=== PATIENT | female | born 1975 | race Caucasian/White ===

== ENCOUNTER 2018-04-10 13:08 | Emergency (ER) | payer OTHER ==
[2018-04-10 13:25] VITALS: BP 119/73
[2018-04-10] MEDS ORDERED: KETOROLAC TROMETHAMINE 60 MG/2 ML SDV IM ONE (14:08)
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
--- NOTE | 2018-04-10 14:58 | RADIOLOGY REPORT (SQ) ---
EXAM DESCRIPTION: T SPINE AP/LAT COMPLETED DATE/TIME: 04/10/2018 2:36 pm REASON FOR STUDY: pain COMPARISON: Concurrent cervical spine radiographs NUMBER OF VIEWS: Two views. TECHNIQUE: AP and lateral radiographic images acquired of the thoracic spine. LIMITATIONS: None. FINDINGS: MINERALIZATION: Normal. ALIGNMENT: Normal. No scoliosis. VERTEBRAE: No fracture or bone lesion. Maintained height, normal segmentation. DISCS: No significant loss of height or significant narrowing. No large osteophytes. HARDWARE: None in the spine. MEDIASTINUM AND SOFT TISSUES: Normal heart size and aortic contour. No soft tissue abnormality. VISUALIZED LUNG BRONSON: Clear. OTHER: No other significant finding. IMPRESSION: NO SIGNIFICANT RADIOGRAPHIC FINDING IN THE THORACIC SPINE. TECHNICAL DOCUMENTATION: JOB ID: [id number] [employer]- All Rights Reserved Reading location - IP/workstation name: [email or web address]
== END 2018-04-10 15:19 | disposition home or self-care (01) ==
LOC: ER 13:08
DX: M54.2 Cervicalgia (principal); V43.52XA Car driver injured in collision with other type car in traffic accident, initial encounter; R51 Headache; R20.0 Anesthesia of skin; R20.2 Paresthesia of skin; F17.210 Nicotine dependence, cigarettes, uncomplicated; Z87.39 Personal history of other diseases of the musculoskeletal system and connective tissue; Z88.2 Allergy status to sulfonamides
CPT/HCPCS: 99284; 96372; 72050; 72070; L0120; J1885

== ENCOUNTER 2018-05-03 08:54 | Emergency (ER) | payer OTHER ==
[2018-05-03] MEDS ORDERED: ACETAMINOPHEN 325 MG TABLET ONE (08:59)
[2018-05-03] MEDS ORDERED: FENTANYL CITRATE INJ/PF 100 MCG/2 ML AMPUL IV ONE ×2 (09:50→10:08)
--- NOTE | 2018-05-03 09:58 | RADIOLOGY REPORT (SQ) ---
EXAM DESCRIPTION: ANKLE RIGHT AP/LATERAL COMPLETED DATE/TIME: 05/03/2018 9:31 am REASON FOR STUDY: ankle deformity COMPARISON: None. NUMBER OF VIEWS: Two views. TECHNIQUE: AP and lateral radiographic images acquired of the right ankle. LIMITATIONS: None. FINDINGS: Normal bone density. Acute right ankle fracture dislocation with medial and lateral malleolar fractures, lateral dislocati on of the talus with respect to the tibia. IMPRESSION: Acute right ankle fracture dislocation with mediolateral malleolar fractures and lateral dislocation of the talus with respect to the tibia. TECHNICAL DOCUMENTATION: JOB ID: [id number] [employer]- All Rights Reserved Reading location - IP/workstation name: [email or web address]
[2018-05-03] MEDS ORDERED: KETAMINE HCL INJ 500 MG/10 ML VIAL IV ONE (10:07)
[2018-05-03] MEDS ORDERED: ONDANSETRON HCL INJ/PF 4 MG/2 ML SDV IV ONE ×2 (10:08→12:22)
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
[2018-05-03 11:13] LABS: ABSOLUTE EOSINOPHILS # (AUTO) 0.4 10^3/uL (0.0-0.6); ABSOLUTE LYMPHOCYTES (AUTO) 2.6 10^3/uL (0.5-4.7); ABSOLUTE MONOCYTES (AUTO) 0.6 10^3/uL (0.1-1.4); ABSOLUTE NEUT (AUTO) 7.1 10^3/uL (1.7-8.2); BASOPHILS % (AUTO) 0.5 % (0-2); EOSINOPHILS % (AUTO) 3.5 % (0-6); LYMPHOCYTES % (AUTO) 24.5 % (13-45); MEAN CORPUSCULAR HEMOGLOBIN 28.2 pg (27.0-33.4); MEAN CORPUSCULAR HGB CONC 33.3 g/dL (32.0-36.0); MEAN CORPUSCULAR VOLUME 85 fl (80-97); MONOCYTES % (AUTO) 5.5 % (3-13); PLATELET COUNT 543 10^3/uL (150-450); RED BLOOD COUNT 3.89 10^6/uL (3.72-5.28); RED CELL DISTRIBUTION WIDTH 16.7 % (11.5-14.0); TOTAL CELLS COUNTED % (AUTO) 100 %; WHITE BLOOD COUNT 10.8 10^3/uL (4.0-10.5)
[2018-05-03 11:20] LABS: INTERNATIONAL RATION (INR) 0.91; PROTHROMBIN TIME 12.7 SEC (11.4-15.4)
[2018-05-03 11:21] LABS: PARTIAL THROMBOPLASTIN TIME 25.6 SEC (23.5-35.8)
[2018-05-03 11:29] LABS: ALANINE AMINOTRANSFERASE 27 U/L (9-52); ALBUMIN 3.6 g/dL (3.5-5.0); ALKALINE PHOSPHATASE 62 U/L (38-126); ANION GAP 10 (5-19); ASPARTATE AMINO TRANSFERASE 28 U/L (14-36); BILIRUBIN,DIRECT 0.2 mg/dL (0.0-0.4); BILIRUBIN,TOTAL 0.2 mg/dL (0.2-1.3); BLOOD UREA NITROGEN 9 mg/dL (7-20); CALCIUM 8.8 mg/dL (8.4-10.2); CARBON DIOXIDE 26 mmol/L (22-30); CHLORIDE 106 mmol/L (98-107); GLUCOSE 99 mg/dL (75-110); POTASSIUM 4.2 mmol/L (3.6-5.0); SODIUM 141.8 mmol/L (137-145); TOTAL PROTEIN 6.5 g/dL (6.3-8.2)
--- NOTE | 2018-05-03 11:56 | RADIOLOGY REPORT (SQ) ---
EXAM DESCRIPTION: HIP LEFT AP/LATERAL COMPLETED DATE/TIME: 05/03/2018 11:27 am REASON FOR STUDY: concern for fracture COMPARISON: None. NUMBER OF VIEWS: Two views. TECHNIQUE: AP pelvis and additional frog-leg view of the left hip. LIMITATIONS: None. FINDINGS: MINERALIZATION: Normal. LEFT HIP: No fracture or dislocation. No worrisome bone lesions. RIGHT HIP: No fracture or dislocation. No worrisome bone lesions. PUBIS AND ISCHIUM: No fracture. PELVIS: No fracture. SACRUM: No fracture or dislocation. No worrisome bone lesions. LOWER LUMBAR SPINE: No fracture or dislocation. No worrisome bone lesions. No significant disc disea se. SOFT TISSUES: No findings. OTHER: No other significant finding. IMPRESSION: 1. NEGATIVE STUDY OF THE LEFT HIP AND PELVIS. TECHNICAL DOCUMENTATION: JOB ID: [id number] [employer]- All Rights Reserved Reading location - IP/workstation name: [email or web address]
--- NOTE | 2018-05-03 11:57 | RADIOLOGY REPORT (SQ) ---
EXAM DESCRIPTION: CHEST SINGLE VIEW COMPLETED DATE/TIME: 05/03/2018 11:27 am REASON FOR STUDY: PRE OP COMPARISON: None. EXAM PARAMETERS: NUMBER OF VIEWS: One view. TECHNIQUE: Single frontal radiographic view of the chest acquired. RADIATION DOSE: NA LIMITATIONS: None. FINDINGS: LUNGS AND PLEURA: No opacities, masses or pneumothorax. No pleural effusion. MEDIASTINUM AND HILAR STRUCTURES: No masses. Contour normal. HEART AND VASCULAR STRUCTURES: Heart normal in size. Normal vasculature. BONES: No acute findings. HARDWARE: None in the chest. OTHER: No other significant finding. IMPRESSION: 1. NO ACUTE RADIOGRAPHIC FINDING IN THE CHEST. TECHNICAL DOCUMENTATION: JOB ID: [id number] [employer]- All Rights Reserved Reading location - IP/workstation name: [email or web address]
--- NOTE | 2018-05-03 12:02 | RADIOLOGY REPORT (SQ) ---
EXAM DESCRIPTION: TIBIA FIBULA RIGHT COMPLETED DATE/TIME: 05/03/2018 11:27 am REASON FOR STUDY: fracture dislocation COMPARISON: None. NUMBER OF VIEWS: Two views. TECHNIQUE: Two radiographic images acquired of the right tibia and fibula to include the knee and an kle in at least one projection. LIMITATIONS: None. FINDINGS: MINERALIZATION: Normal. BONES: Plaster cast is present. Comminuted displaced distal fibula fracture. Intra-articular sligh tly displaced medial malleolus fracture. Mild subluxation or dislocation of the talus is suggested l aterally. SOFT TISSUES: No obvious swelling or foreign body. OTHER: No other significant finding. IMPRESSION: 1. Fracture-dislocation of the right ankle as above. 2. Plaster cast is present. TECHNICAL DOCUMENTATION: JOB ID: [id number]- All Rights Reserved Reading location - IP/workstation name: [email or web address]
[2018-05-03] MEDS ORDERED: OXYCODONE-ACETAMINOPHEN 5-325 MG TABLET PO ONE (13:51)
[2018-05-03] MEDS ORDERED: HYDROCODONE/ACETAMINOPHEN 5-325 MG (6 TAB/ER DISP) PO PRN (13:56)
--- NOTE | 2018-05-03 14:07 | RADIOLOGY REPORT (SQ) ---
EXAM DESCRIPTION: ANKLE RIGHT AP/LATERAL COMPLETED DATE/TIME: 05/03/2018 1:45 pm REASON FOR STUDY: ANOTHER PA AND LATERAL PER ORTHO DR REQUEST COMPARISON: Two-view right ankle earlier today 05/03/2018 NUMBER OF VIEWS: Two views. TECHNIQUE: AP and lateral radiographic images acquired of the right ankle. LIMITATIONS: None. FINDINGS: Post closed reduction of the right ankle fracture dislocation. Near anatomic alignment at the ankle mortise. Ankle is immobilized in the fiberglass cast. IMPRESSION: Post closed reduction of the right ankle fracture dislocation with near anatomic alignme nt at the ankle mortise TECHNICAL DOCUMENTATION: JOB ID: [id number] [employer]- All Rights Reserved Reading location - IP/workstation name: [email or web address]
[2018-05-03] MEDS ORDERED: ONDANSETRON 4 MG TAB.RAPDIS ONE (14:14)
[2018-05-03] MEDS ORDERED: ONDANSETRON 4 MG TAB.RAPDIS PO ONE (14:22)
[2018-05-03 16:19] VITALS: BP 111/84
== END 2018-05-03 14:28 | disposition home or self-care (01) ==
LOC: ER 08:54
DX: S82.841A Displaced bimalleolar fracture of right lower leg, initial encounter for closed fracture (principal); M25.519 Pain in unspecified shoulder; R29.898 Other symptoms and signs involving the musculoskeletal system; V43.52XA Car driver injured in collision with other type car in traffic accident, initial encounter; J45.909 Unspecified asthma, uncomplicated; Z88.2 Allergy status to sulfonamides
CPT/HCPCS: 96376; 99284; 99153; 99152; 96374; 86900; 86901; 36415; 86850; 85025; 85610; 85730; 80053; 73600; 71045; 73502; 73590; 27810; S0119; J3010; J3490; J2405

== ENCOUNTER 2018-05-06 11:21 | Day surgery (SDC) | payer OTHER ==
[~2018-05-06 11:21] MED LIST: DEXAMETHASONE SOD PHOSPHATE INJ 4 MG/1 ML VIAL ONE; KETOROLAC TROMETHAMINE 60 MG/2 ML SDV ONE; ONDANSETRON HCL INJ/PF 4 MG/2 ML SDV ONE; ROCURONIUM BROMIDE INJ 50 MG/5 ML VIAL IV ONE; SUCCINYLCHOLINE CHLORIDE INJ 200 MG/10 ML VIAL ONE
[2018-05-06] MEDS ORDERED: CEFAZOLIN 2 GM/D5W RTU 2 GM/50 ML RTUPB IV ONE (11:59)
[2018-05-06] MEDS ORDERED: ALBUTEROL SULFATE 0.083% NEB 2.5 MG/3 ML AMPUL NEB ONE (12:08)
[2018-05-06 12:22] LABS: HEMATOCRIT 32.6 % (36.0-47.0); MEAN CORPUSCULAR HEMOGLOBIN 28.3 pg (27.0-33.4); MEAN CORPUSCULAR HGB CONC 33.8 g/dL (32.0-36.0); MEAN CORPUSCULAR VOLUME 84 fl (80-97); PLATELET COUNT 470 10^3/uL (150-450); RED BLOOD COUNT 3.89 10^6/uL (3.72-5.28); RED CELL DISTRIBUTION WIDTH 16.4 % (11.5-14.0); WHITE BLOOD COUNT 9.2 10^3/uL (4.0-10.5)
[2018-05-06] MEDS ORDERED: BUPIVACAINE HCL 0.25 % INJ/PF (2.5 MG/1 ML) 30 ML VIAL ONE (12:23)
[2018-05-06] MEDS ORDERED: FENTANYL CITRATE INJ/PF 100 MCG/2 ML AMPUL ONE ×3 (12:34→16:34)
[2018-05-06] MEDS ORDERED: MIDAZOLAM 2 MG/2 ML INJ ONE (12:34)
[2018-05-06] MEDS ORDERED: LIDOCAINE 2% INJ-PF (20 MG/ML) 10 ML AMPUL ONE (12:34)
[2018-05-06] MEDS ORDERED: HYDROMORPHONE HCL INJ/PF 2 MG/ML AMPULE ONE ×2 (12:34→17:29)
[2018-05-06] MEDS ORDERED: ACETAMINOPHEN 1,000 MG/100 ML RTUPB IV ONE (12:35)
[2018-05-06] MEDS ORDERED: PROPOFOL INJ 200 MG/20 ML VIAL IV ONE (12:35)
[2018-05-06] MEDS ORDERED: ONDANSETRON HCL INJ/PF 4 MG/2 ML SDV ONE (12:35)
[2018-05-06] MEDS ORDERED: PROMETHAZINE HCL INJ 25 MG/1 ML VIAL ONE (13:05)
[2018-05-06] MEDS ORDERED: MORPHINE SULFATE 10 MG/ML INJ IV PRN (13:36)
[2018-05-06] MEDS ORDERED: MEPERIDINE HCL/PF INJ 25 MG/1 ML DISP.SYRIN IV PRN (13:36)
[2018-05-06] MEDS ORDERED: DIPHENHYDRAMINE HCL 50 MG/ML VIAL IV PRN (13:36)
[2018-05-06] MEDS ORDERED: PROMETHAZINE HCL INJ 25 MG/1 ML VIAL IV PRN ×2 (13:36)
[2018-05-06] MEDS ORDERED: FENTANYL CITRATE INJ/PF 100 MCG/2 ML AMPUL IV PRN ×2 (13:36)
--- NOTE | 2018-05-06 16:29 | Discharge Summary ---
Discharge Summary (SDC) - Discharge Final Diagnosis: ORIF of right ankle fracture dislocation with syndesmotic repair Date of Surgery: 05/06/18 Discharge Date: 05/06/18 Condition: Good Treatment or Instructions: Keep the splint dry clean and intact. Keep it until follow-up in 2 weeks Nonweightbearing with ice and elevation. Crutches or walker for ambulation or wheelchair. Call back for fevers chills or any drainage. Prescriptions: Oxycodone HCl/Acetaminophen [Percocet 5-325 mg Tablet] 1 - 2 tab PO ASDIR PRN # 60 tablet PRN Reason: Referrals: PAULINA NASCIMENTO MD [Primary Care Provider] - Discharge Diet: As Tolerated Respiratory Treatments at Home: Deep Breathing/Coughing Discharge Activity: No Driving, Keep Legs Elevated, No Lifting/Push/Pulling Home Care Assistance: None Needed Adaptive Devices on Discharge: Axillary Crutches Report the Following to Your Physician Immediately: Shortness of Breath, Vomiting, Increase in Pain, Fever over 101 Degrees, Unusual Bleeding, Redness, Swelling, Warmth, Increased Soreness, Drainage-Yellow, Drainage-[place], Drainage- Green, Drainage-Foul Smelling, Increased Vaginal Bleed
[2018-05-06] MEDS: FENTANYL CITRATE INJ/PF 100 MCG/2 ML AMPUL IV PRN ×2 (16:35→16:55)
[2018-05-06] MEDS ORDERED: OXYCODONE-ACETAMINOPHEN 5-325 MG TABLET PO PRN ×2 (16:39)
--- NOTE | 2018-05-06 16:39 | Operative Report ---
Operative Report DATE OF SURGERY: 05/06/18 PREOPERATIVE DIAGNOSIS: Right ankle fracture dislocation with a comminuted lateral malleolus and medial malleolus fracture. Concern for syndesmotic injury POSTOPERATIVE DIAGNOSIS: Same OPERATION: ORIF right ankle lateral malleolus and medial malleolus as well as syndesmotic repair using tight rope SURGEON: STEFANIA LOWERY ANESTHESIA: GA TISSUE REMOVED OR ALTERED: None COMPLICATIONS: None ESTIMATED BLOOD LOSS: Less than 20 mL INTRAOPERATIVE FINDINGS: As above PROCEDURE: Patient received preoperative antibiotics in the preoperative holding area. Patient was now taken to the operating room and induced and intubated in supine position. Once the tube was secured a thigh tourniquet was applied to right lower extremity. Extremity was prepped and draped in a normal surgical fashion. Timeout was done identifying the right ankle as the correct site. Esmarch was used to exsanguinate the extremity and the tourniquet was inflated to 300 mmHg. A standard lateral incision was done straight over the distal fibula. Check position was taken down to the bone and then periosteal elevator was used to expose the fracture site and elevate the periosteum at the fracture site. Patient had the 2 main fragments in the area of the dislocation patient also had additional 3 fragments from the comminution and the dislocation. Noted that the malleolus was not hypermobile and had a positive contests also made decision to proceed with using the tightrope. I first tried to place the 2 butterfly fragments to obtain my length of the fibula. I then proceeded to use clamps to hold the titanium locking plate in position while I held the butterfly fragments to make sure had the proper length. I noted that the medial malleolus would reduce and the mortise was relatively reduced with current reduction so Reduction clamp was removed and the fracture stayed reduced. AP and lateral x-rays confirm there is no change in alignment. I then proceeded to fill in the remaining holes I drilling and using C-arm and measuring guide to applied appropriate screws. Once I was satisfied with my lateral fixation at the end of the current test and showed there is still some mobility so I proceeded to place my ACL tightrope. C-arm was used to make sure I had placed my guidepin properly in the lateral malleolus allowing into the tibia. I was able then to DC cannulated screws to drill all 4 cortices and remove the pin. I then used my type open pass it through the medial aspect and a flip to successfully onto the medial cortex of the tibia. I sense to type up down successfully onto the plate. Of note I used a titanium button on a titanium plate. I was satisfied with the fixation so I then turned my attention to the medial malleolus fracture. A curvilinear incision was done over the medial aspect of the ankle using a 15 blade. Dissection was done with a Metzenbaum scissor. Branches of the small saphenous vein was visualized and retracted. Fracture site was exposed with hematoma. Between 15 blade and periosteal elevator was able to expose the 2 fracture ends. I used a pointed reduction clamp to do my reduction of the medial malleolus. C-arm confirmed proper reduction and therefore I used [address] him in the distal fragment into the proximal aspect of the tibia. AP and lateral C-arm pictures were taken confirming placement and reduction again. I then proceeded to use self drilling self- tapping screws after measuring appropriate length for both of them. C-arm pictures were taken on syndrome to confirm placement of the screws without any complications. I was satisfied with my reduction and fixation of the medial malleolus I then proceeded to close the wound medially with 0 Vicryl to Vicryl and natalia.] At this point I proceeded to close my lateral wound with 0 Vicryl and 3-0 Vicryl and natalia for skin. Tourniquet was let down and the dressing was applied. Xeroform 4 x 4 sterile dressing followed by Sof-Rol was applied. A posterior Ortho-Glass splint with a Ortho-Glass stirrup splint was applied and overwrapped with an Blaise bandage. I held the foot in neutral and waiting until the splint hardened. At this point drapes were removed and patient was extubated and sent to PACU in stable condition.
--- NOTE | 2018-05-06 16:41 | RADIOLOGY REPORT (SQ) ---
EXAM DESCRIPTION: NO CHG FLUORO COMPLETE DATE/TIME: 05/06/2018 4:32 pm REASON FOR STUDY: ORIF RIGHT ANKLE S82.841A DISPLACED BIMALLEOLAR FRACTURE OF RIGHT LOWER LEG, FINDINGS: Please see combined report for performance of procedure and radiologic supervision and int erpretation. IMPRESSION: Please see combined report for performance of procedure and radiologic supervision and i nterpretation. Reading location - IP/workstation name: [email or web address]
--- NOTE | 2018-05-06 16:41 | RADIOLOGY REPORT (SQ) ---
EXAM DESCRIPTION: ANKLE RIGHT AP/LATERAL COMPLETED DATE/TIME: 05/06/2018 4:32 pm REASON FOR STUDY: ORIF RIGHT ANKLE S82.841A DISPLACED BIMALLEOLAR FRACTURE OF RIGHT LOWER LEG, COMPARISON: 05/03/2018 FLUOROSCOPY TIME: 1.7 minutes 4 images saved to PACS. TECHNIQUE: Intra-operative images acquired during surgical procedure to evaluate progress. NUMBER OF IMAGES: 4 images LIMITATIONS: None. FINDINGS: Fluoroscopic images were obtained during internal fixation of the previously described fra ctures of the right ankle. Orthopedic hardware is identified. Please refer to the surgeon's operati ve report for additional information. IMPRESSION: IMAGE(S) OBTAINED DURING PROCEDURE. COMMENT: Quality ID [id number]: Final reports for procedures using fluoroscopy that document radiation exp osure indices, or exposure time and number of fluorographic images (if radiation exposure indices are not available) Please consult full operative report of the attending physician for description of the procedure. TECHNICAL DOCUMENTATION: JOB ID: [id number] [employer]- All Rights Reserved Reading location - IP/workstation name: [email or web address]
[2018-05-06] MEDS ORDERED: OXYCODONE-ACETAMINOPHEN 5-325 MG TABLET ONE (18:18)
[2018-05-06 19:42] VITALS: BP 117/76
== END 2018-05-06 19:35 | disposition home or self-care (01) ==
LOC: OROUT 11:21
PROVIDERS: ATTEND Orthopaedic Surgery
DX: S82.841A Displaced bimalleolar fracture of right lower leg, initial encounter for closed fracture (principal); V89.2XXA Person injured in unspecified motor-vehicle accident, traffic, initial encounter; Z88.2 Allergy status to sulfonamides; F17.210 Nicotine dependence, cigarettes, uncomplicated; E66.9 Obesity, unspecified; Z68.33 Body mass index [BMI] 33.0-33.9, adult
CPT/HCPCS: 36415; 85027; 81025; 73600; 27814; C1713 ×7; C9359; C1769; J2250; J3490 ×2; J1100; J1885; J3010; J1170; J2550; J0330; J2405; J2704; J0690; J0131; 01480

== ENCOUNTER 2018-11-14 09:49 | Day surgery (SDC) | payer MEDICAID ==
[~2018-11-14 09:49] MED LIST changes: +CEFAZOLIN 2 GM/D5W RTU 2 GM/50 ML RTUPB IV PRN; -DEXAMETHASONE SOD PHOSPHATE INJ 4 MG/1 ML VIAL ONE; -KETOROLAC TROMETHAMINE 60 MG/2 ML SDV ONE; -ONDANSETRON HCL INJ/PF 4 MG/2 ML SDV ONE; -ROCURONIUM BROMIDE INJ 50 MG/5 ML VIAL IV ONE; -SUCCINYLCHOLINE CHLORIDE INJ 200 MG/10 ML VIAL ONE
[2018-11-14] MEDS ORDERED: CEFAZOLIN 1 GM/D5W RTU 0 GM/0 ML RTUPB IV ONE (09:58)
[2018-11-14] MEDS ORDERED: CEFAZOLIN 2 GM/D5W RTU 2 GM/50 ML RTUPB IV ONE (09:59)
[2018-11-14 10:42] LABS: HEMATOCRIT 33.9 % (36.0-47.0); HEMOGLOBIN 11.2 g/dL (12.0-15.5); MEAN CORPUSCULAR HEMOGLOBIN 28.8 pg (27.0-33.4); MEAN CORPUSCULAR HGB CONC 32.9 g/dL (32.0-36.0); MEAN CORPUSCULAR VOLUME 87 fl (80-97); PLATELET COUNT 422 10^3/uL (150-450); RED BLOOD COUNT 3.88 10^6/uL (3.72-5.28); RED CELL DISTRIBUTION WIDTH 15.7 % (11.5-14.0)
--- NOTE | 2018-11-14 10:52 | RADIOLOGY REPORT (SQ) ---
EXAM DESCRIPTION: CHEST SINGLE VIEW COMPLETED DATE/TIME: 11/14/2018 10:31 am REASON FOR STUDY: pre op COMPARISON: 05/03/2018 EXAM PARAMETERS: NUMBER OF VIEWS: One view. TECHNIQUE: Single frontal radiographic view of the chest acquired. RADIATION DOSE: NA LIMITATIONS: None. FINDINGS: LUNGS AND PLEURA: No opacities, masses or pneumothorax. No pleural effusion. MEDIASTINUM AND HILAR STRUCTURES: No masses. Contour normal. HEART AND VASCULAR STRUCTURES: Heart normal in size. Normal vasculature. BONES: No acute findings. HARDWARE: None in the chest. OTHER: No other significant finding. IMPRESSION: NO ACUTE RADIOGRAPHIC FINDING IN THE CHEST. TECHNICAL DOCUMENTATION: JOB ID: [id number] [employer]- All Rights Reserved Reading location - IP/workstation name: [email or web address]
--- NOTE | 2018-11-14 11:27 | EKG REPORT ---
SEVERITY:- NORMAL ECG - SINUS RHYTHM : Confirmed by: Reta Isbell MD 14-Nov-2018 11:27:21
[2018-11-14 11:30] LABS: ANION GAP 6 (5-19); BLOOD UREA NITROGEN 9 mg/dL (7-20); CALCIUM 8.7 mg/dL (8.4-10.2); CARBON DIOXIDE 26 mmol/L (22-30); CHLORIDE 107 mmol/L (98-107); GLUCOSE 89 mg/dL (75-110); POTASSIUM 4.3 mmol/L (3.6-5.0); SODIUM 138.8 mmol/L (137-145)
[2018-11-14] MEDS ORDERED: FENTANYL CITRATE INJ/PF 250 MCG/5 ML AMPULE ONE (12:16)
[2018-11-14] MEDS ORDERED: MIDAZOLAM 2 MG/2 ML INJ ONE (12:17)
[2018-11-14] MEDS ORDERED: LIDOCAINE 2% INJ (20 MG/ML) 20 ML MDV ONE (12:17)
[2018-11-14] MEDS ORDERED: PROPOFOL INJ 200 MG/20 ML VIAL IV ONE (12:17)
[2018-11-14] MEDS ORDERED: HYDROMORPHONE HCL INJ/PF 2 MG/ML AMPULE ONE (12:34)
[2018-11-14] MEDS ORDERED: ACETAMINOPHEN 1,000 MG/100 ML RTUPB IV ONE (12:47)
[2018-11-14] MEDS ORDERED: DEXAMETHASONE SOD PHOSPHATE INJ 4 MG/1 ML VIAL ONE (13:05)
[2018-11-14] MEDS ORDERED: LIDOCAINE 2% INJ-PF (20 MG/ML) 2 ML AMPUL ONE (13:05)
[2018-11-14] MEDS ORDERED: KETOROLAC TROMETHAMINE 60 MG/2 ML SDV ONE (13:05)
[2018-11-14] MEDS ORDERED: ONDANSETRON HCL INJ/PF 4 MG/2 ML SDV ONE ×2 (13:05→15:11)
--- NOTE | 2018-11-14 14:02 | Discharge Summary ---
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 Date of Surgery: 11/14/18 Discharge Date: 11/14/18 Condition: Good Treatment or Instructions: Touchdown weightbearing restriction right lower extremity Prescriptions: Oxycodone HCl/Acetaminophen [Percocet 5-325 mg Tablet] 1 tab PO Q6 PRN #40 tab PRN Reason: Referrals: ANTHONY TAMAYO DO [Primary Care Provider] - Discharge Diet: As Tolerated, Regular Respiratory Treatments at Home: Deep Breathing/Coughing Discharge Activity: Balance Activity w/Rest, No Driving, No tub bath Adaptive Devices on Discharge: Axillary Crutches Report the Following to Your Physician Immediately: Shortness of Breath, Fever over 101 Degrees, Drainage-Foul Smelling
--- NOTE | 2018-11-14 14:05 | Operative Report ---
Operative Report DATE OF SURGERY: 11/14/18 PREOPERATIVE DIAGNOSIS: Nonunion and broken hardware right ankle OPERATION: Removal of hardware. Takedown of nonunion. Repeat open reduction internal fixation with bone graft substitute SURGEON: BOO BLOOM ANESTHESIA: GA TISSUE REMOVED OR ALTERED: Tissue to pathology. Hardware to CSS ESTIMATED BLOOD LOSS: 25 PROCEDURE: With the patient supine on the operating room table the right lower extremities prepped and draped in sterile fashion. Limb is elevated for exsanguination tourniquet inflated to 280 torr. A longitudinal incision was made over the lateral malleolus and sharp dissection was carried incision down to the underlying plate. 3 screws were removed followed by the distal broken fragment of the plate. 4 screws removed proximally and the remainder the plates removed. The nonunion was taken down with a combination of curette, rondure, and irrigation. Bone fragments are removed. These appear to be nonviable. Subsequently a 7-hole [place] titanium distal fibula plate is attached to the distal fracture fragment with 4 screws. This is used as a lever arm to open the nonunion. 2.5 cc of the talus bone graft substitute is mixed and used to fill the bone defect. The remaining proximal 4 screws in the plate are added. One screw was placed additionally on either side of the fracture one into the proximal fragment one into the distal fragment. The construct is checked fluoroscopically and felt to be adequate. The tourniquet was deflated. Wound is irrigated. Hemostasis obtained with electro cautery. Wound was closed in layers interrupted Vicryl followed by natalia. A sterile compressive dressing posterior plaster splint were applied and the patient's return to the PACU in satisfactory condition.
[2018-11-14] MEDS ORDERED: BUPIVACAINE HCL 0.5%-EPI 1:200000 INJ/PF 30 ML VIAL ONE (14:10)
[2018-11-14] MEDS ORDERED: OXYCODONE HCL IR 5 MG TABLET PO PRN (14:29)
[2018-11-14] MEDS ORDERED: ONDANSETRON 4 MG TAB.RAPDIS PO PRN (14:30)
--- NOTE | 2018-11-14 14:48 | RADIOLOGY REPORT (SQ) ---
EXAM DESCRIPTION: NO CHG FLUORO; ANKLE RIGHT AP/LATERAL COMPLETED DATE/TIME: 11/14/2018 2:29 pm REASON FOR STUDY: ORIF RIGHT ANKLE ASST WITH FLUORO IN OR COMPARISON: None. FLUOROSCOPY TIME: 0.1 minutes 5 Images saved to PACS LIMITATIONS: None. PROCEDURE: ORIF right ankle. FINDINGS: Images from fluoro document placement of a compression plate on the distal fibula and 2 lo ng cannulated screws in the medial malleolus. IMPRESSION: ORIF right ankle. Refer to operative note for further information. COMMENT: PQRS 6045F: Fluoroscopy time of the procedure is documented in the report. TECHNICAL DOCUMENTATION: JOB ID: [id number] [employer]- All Rights Reserved Reading location - IP/workstation name: [email or web address]
--- NOTE | 2018-11-14 14:48 | RADIOLOGY REPORT (SQ) ---
EXAM DESCRIPTION: NO CHG FLUORO; ANKLE RIGHT AP/LATERAL COMPLETED DATE/TIME: 11/14/2018 2:29 pm REASON FOR STUDY: ORIF RIGHT ANKLE ASST WITH FLUORO IN OR COMPARISON: None. FLUOROSCOPY TIME: 0.1 minutes 5 Images saved to PACS LIMITATIONS: None. PROCEDURE: ORIF right ankle. FINDINGS: Images from fluoro document placement of a compression plate on the distal fibula and 2 lo ng cannulated screws in the medial malleolus. IMPRESSION: ORIF right ankle. Refer to operative note for further information. COMMENT: PQRS 6045F: Fluoroscopy time of the procedure is documented in the report. TECHNICAL DOCUMENTATION: JOB ID: [id number] [employer]- All Rights Reserved Reading location - IP/workstation name: [email or web address]
[2018-11-14] MEDS ORDERED: ONDANSETRON HCL INJ/PF 4 MG/2 ML SDV IV PRN (14:57)
[2018-11-14] MEDS ORDERED: DIPHENHYDRAMINE HCL 50 MG/ML VIAL IV PRN (14:57)
[2018-11-14] MEDS ORDERED: PROMETHAZINE HCL INJ 25 MG/1 ML VIAL IV PRN ×2 (14:57)
[2018-11-14] MEDS ORDERED: MORPHINE SULFATE 10 MG/ML INJ IV PRN (14:57)
[2018-11-14] MEDS ORDERED: FENTANYL CITRATE INJ/PF 100 MCG/2 ML AMPUL IV PRN ×2 (14:57)
[2018-11-14] MEDS ORDERED: MEPERIDINE HCL/PF INJ 25 MG/1 ML DISP.SYRIN IV PRN (14:57)
[2018-11-14] MEDS ORDERED: OXYCODONE-ACETAMINOPHEN 5-325 MG TABLET PO PRN ×2 (14:57)
[2018-11-14] MEDS ORDERED: FENTANYL CITRATE INJ/PF 100 MCG/2 ML AMPUL ONE (15:14)
[2018-11-14] MEDS: FENTANYL CITRATE INJ/PF 100 MCG/2 ML AMPUL IV PRN ×2 (15:15→15:30)
[2018-11-14] MEDS ORDERED: OXYCODONE-ACETAMINOPHEN 5-325 MG TABLET ONE (16:14)
[2018-11-14] MEDS ORDERED: ONDANSETRON 4 MG TAB.RAPDIS ONE (16:46)
[2018-11-14 17:12] VITALS: BP 120/85
== END 2018-11-14 17:19 | disposition home or self-care (01) ==
LOC: OROUT 09:49
PROVIDERS: ATTEND Orthopaedic Surgery
DX: S82.841K Displaced bimalleolar fracture of right lower leg, subsequent encounter for closed fracture with nonunion (principal); T84.89XA Other specified complication of internal orthopedic prosthetic devices, implants and grafts, initial encounter; Y83.8 Other surgical procedures as the cause of abnormal reaction of the patient, or of later complication, without mention of misadventure at the time of the procedure; F17.210 Nicotine dependence, cigarettes, uncomplicated; E66.3 Overweight; Z88.2 Allergy status to sulfonamides; Z68.33 Body mass index [BMI] 33.0-33.9, adult
CPT/HCPCS: 36415; 85027; 81025; 80048; 73600; 71045; 93005; 93010; 01480; 27814; 20680; C1713 ×5; J2250; J3490 ×3; J1100; J1885; S0119; J3010 ×2; J1170; J2405; J2704; J0690; J0131

== ENCOUNTER → 2018-11-29 | Outpatient (CLI) | payer MEDICAID ==
[2018-11-29 14:56] LABS: BACTERIA (WET MOUNT) 3+ BACTERIA SEEN; EPITHELIALS (WET MOUNT) 4+ EPITHELIALS SEEN; RBCS (WET MOUNT) 1+ RBCS SEEN; T.VAGINALIS (WET MOUNT) TRICHOMONAS SEEN; WBCS (WET MOUNT) 3+ WBCS SEEN; YEAST (WET MOUNT) NO YEAST SEEN
== END ==
LOC: LAB 14:38
PROVIDERS: ATTEND Nurse Practitioner Acute Care
DX: N89.8 Other specified noninflammatory disorders of vagina (principal)
CPT/HCPCS: 87210